=== PATIENT | female | born 1960 | race African-American/Black ===

== ENCOUNTER 2021-02-20 09:05 | Emergency (ER) | payer MEDICARE ==
[2021-02-20 10:37] LABS: MDiff Complete? YES; Mean Corpuscular HGB CONC 32.3 g/dL (32.0-36.0); Mean Corpuscular Hemoglobin 27.4 pg (27.0-33.0); Mean Corpuscular Volume 84.6 fl (81.6-98.3); Mean Platelet Volume 10.7 fl (7.4-10.4); Platelet Count 239 10x3/uL (150-450); RBC Distribution Width 16.1 % (11.5-14.5); Red Blood Cell (RBC) Count 4.75 10x6/uL (3.90-5.03); White Blood Cell (WBC) Count 21.2 10x3/uL (3.5-10.5)
[2021-02-20 10:47] LABS: ALT (SGPT) 23 U/L (8-55); AST (SGOT) 18 U/L (5-34); Alkaline Phosphatase 143 U/L (40-110); Anion Gap 17 mmol/L (10-20); BUN (Urea Nitrogen) 24 mg/dL (9.8-20.1); Bilirubin, Total 0.3 mg/dL (0.2-1.2); Calc. Creatinine Clearance 0 mL/min (70-130); Calcium 9.6 mg/dL (7.8-10.44); Carbon Dioxide 24 mmol/L (22-29); Chloride 96 mmol/L (98-107); Globulin 3.4 g/dL (2.4-3.5); Glucose 118 mg/dL (70-105); Magnesium 1.8 mg/dL (1.6-2.6); Potassium 3.5 mmol/L (3.5-5.1); Protein, Total 7.4 g/dL (6.0-8.3); Sodium 133 mmol/L (136-145)
[2021-02-20 11:11] LABS: Band 2 % (5-11); Eosinophils 2 % (0-10); Lymphocytes 32 % (21-51); Monocytes 3 % (0-10); Neutrophil 61 % (42-75)
[2021-02-20 11:13] LABS: Anisocytosis SLIGHT = 6-15 cells (100X) (0-5/hpf); Hypochromia SLIGHT = 6-15 cells (100X) (0-5/hpf); Platelet Morphology Comment Appears Adequate
== END 2021-02-20 13:00 | disposition home or self-care (01) ==
LOC: CSHERS 09:05
DX: U07.1 COVID-19 (principal); D64.9 Anemia, unspecified; J45.909 Unspecified asthma, uncomplicated; I10 Essential (primary) hypertension; Z87.891 Personal history of nicotine dependence
CPT/HCPCS: 36415; 71045; 74177; 80053; 83735; 84484; 85025; 93005

== ENCOUNTER 2021-06-18 11:21 | Emergency (ER) | payer MEDICARE | END 2021-06-18 11:50 | disposition home or self-care (01) | LOC: CSHERS 11:21 | DX: K02.9 Dental caries, unspecified (principal); I10 Essential (primary) hypertension; D64.9 Anemia, unspecified; Z87.891 Personal history of nicotine dependence | CPT/HCPCS: 99282 ==

== ENCOUNTER 2022-02-28 18:36 | Emergency (ER) | payer OTHER ==
[2022-02-28] MEDS ORDERED: predniSONE 20 MG TAB ONE (20:23)
[2022-02-28] MEDS ORDERED: Ipratropium/Albuterol 3 ML NEB ONE (20:23)
== END 2022-02-28 21:45 | disposition home or self-care (01) ==
LOC: CSHERS 18:36
DX: J18.9 Pneumonia, unspecified organism (principal); D64.9 Anemia, unspecified
CPT/HCPCS: 71045; J7512; J7620

== ENCOUNTER 2023-02-28 23:54 | Emergency (ER) | payer OTHER ==
[2023-03-01] MEDS ORDERED: Ondansetron ODT 4 MG TAB ONE (01:20)
== END 2023-03-01 02:37 | disposition home or self-care (01) ==
LOC: CSHERS 23:54
DX: R11.2 Nausea with vomiting, unspecified (principal); I10 Essential (primary) hypertension
CPT/HCPCS: 99283; Q0162

== ENCOUNTER 2023-09-26 16:00 | Outpatient (CLI) | payer OTHER | END 2023-09-26 16:01 | disposition home or self-care (01) | LOC: CSHSLEEP 16:00 | PROVIDERS: ATTEND Family Medicine | DX: G47.33 Obstructive sleep apnea (adult) (pediatric) (principal); R53.83 Other fatigue; I10 Essential (primary) hypertension; R06.83 Snoring | CPT/HCPCS: 95810 ==

== ENCOUNTER 2024-01-30 08:41 | Outpatient (CLI) | payer OTHER | END 2024-01-30 08:42 | disposition home or self-care (01) | LOC: CSHSLEEP 08:41 | PROVIDERS: ATTEND Family Medicine | DX: G47.33 Obstructive sleep apnea (adult) (pediatric) (principal); G47.30 Sleep apnea, unspecified; R53.83 Other fatigue; R06.83 Snoring; I10 Essential (primary) hypertension | CPT/HCPCS: 95811 ==